=== PATIENT | male | born 1970 | race Caucasian/White ===

== ENCOUNTER 2018-09-24 15:28 | Emergency (ER) | payer MEDICAID ==
[~2018-09-24] VITALS: Ht 167.6 cm; Wt 78.0 kg
[2018-09-24 15:32] VITALS: BP 137/91
[2018-09-24] MEDS ORDERED: KETOROLAC 30 MG/1 ML ONE (15:57)
[2018-09-24] MEDS ORDERED: KETOROLAC 30 MG/1 ML IM ONE (16:00)
--- NOTE | 2018-09-24 16:42 | NUR ---
DC EDUCATION PROVIDED, PT DEMONSTRATES UNDERSTANDING. PT AMBULATED STEADILY TO DC WITH RN. PT DRESSED APPROPRIATELY FOR WEATHER
== END 2018-09-24 16:54 | disposition home or self-care (01) ==
LOC: ED 16:45
DX: M70.22 Olecranon bursitis, left elbow (principal); F17.200 Nicotine dependence, unspecified, uncomplicated
CPT/HCPCS: 73080; 96372; 99283; J1885